=== PATIENT | male | born 1970 | race Caucasian/White ===

== ENCOUNTER 2020-01-30 10:34 | Emergency (ER) | payer OTHER ==
[~2020-01-30] VITALS: Ht 185.4 cm; Wt 133.8 kg
[2020-01-30 10:47] VITALS: BP_SYST 141
[2020-01-30] MEDS ORDERED: NACL 0.9% 1,000 ML IV ONE (10:57)
[2020-01-30] MEDS ORDERED: LORazepam 2 MG/ML VIAL IVP ONE (11:00)
[2020-01-30] MEDS ORDERED: ASPIRIN 81 MG TAB.CHEW PO ONE (11:00)
[2020-01-30 11:20] LABS: BASOPHILS # (AUTO) 0.1 K/uL (0.0-0.2); BASOPHILS % (AUTO) 0.8 % (0.0-2.0); EOSINOPHILS # (AUTO) 0.2 K/uL (0.0-0.4); EOSINOPHILS % (AUTO) 2.2 % (0.0-4.0); HEMATOCRIT 44.2 % (36-54); HEMOGLOBIN 14.8 g/dL (14.0-18.0); LYMPHOCYTES # (AUTO) 2.2 K/uL (1.0-5.5); LYMPHOCYTES % (AUTO) 28.8 % (20.5-51.5); MEAN CORPUSCULAR HEMOGLOBIN 28 pg (27-31); MEAN CORPUSCULAR HGB CONC 34 % (32-36); MEAN CORPUSCULAR VOLUME 85 fL (79.0-98.0); MONOCYTES # (AUTO) 0.5 K/uL (0.0-1.0); NEUTROPHILS # (AUTO) 4.8 K/uL (1.8-7.7); NEUTROPHILS % (AUTO) 62.2 % (40.0-70.0); PLATELET COUNT (AUTO) 209 K/uL (130-430); RED BLOOD CELL COUNT(AUTO) 5.22 MIL/uL (4.2-6.2); WHITE BLOOD COUNT (AUTO) 7.7 K/uL (4.8-10.8)
[2020-01-30 11:33] LABS: ANION GAP 11 (5-15); CALCIUM 8.4 mg/dL (8.4-11.0); CHLORIDE 102 mmol/L (98-107); CREATININE 0.95 mg/dL (0.55-1.30); GLUCOSE 150 mg/dL (70-99); POTASSIUM 3.9 mmol/L (3.5-5.1); SODIUM SERUM 140 mmol/L (136-145); UREA NITROGEN, BLOOD 15 mg/dL (8-21)
[2020-01-30 11:37] LABS: GFR AFRICAN AMERICAN 108 mL/min (>90)
[2020-01-30 11:41] LABS: ALANINE AMINOTRANSFERASE 37 U/L (12-78); ALBUMIN 3.4 g/dL (3.4-4.8); ASPARTATE AMINOTRANSFERASE 25 U/L (10-37); TOTAL BILIRUBIN 0.4 mg/dL (0.0-1.0)
[2020-01-30 12:45] VITALS: BP_SYST 120
== END 2020-01-30 12:45 | disposition home or self-care (01) ==
LOC: SED 10:34
DX: F41.9 Anxiety disorder, unspecified (principal); R00.2 Palpitations; I10 Essential (primary) hypertension; E78.00 Pure hypercholesterolemia, unspecified; R42 Dizziness and giddiness
CPT/HCPCS: 36415; 71045; 80053; 84484; 85025; 93005; 96361; 96374; 99285; J2060; J7030

== ENCOUNTER 2020-08-23 14:36 | Emergency (ER) | payer OTHER ==
[~2020-08-23] VITALS: Ht 185.4 cm; Wt 136.1 kg
[2020-08-23 14:40] VITALS: BP_SYST 131
== END 2020-08-23 18:06 | disposition home or self-care (01) ==
LOC: SED 14:36
DX: B34.9 Viral infection, unspecified (principal); R50.9 Fever, unspecified; M79.18 Myalgia, other site; R05 Cough; I10 Essential (primary) hypertension; E78.00 Pure hypercholesterolemia, unspecified; Z20.828 Contact with and (suspected) exposure to other viral communicable diseases
CPT/HCPCS: 71045; 99284; C9803; U0003

== ENCOUNTER 2020-08-24 10:02 | Emergency (ER) | payer OTHER, SELFPAY ==
[~2020-08-24] VITALS: Ht 185.4 cm; Wt 136.1 kg
[2020-08-24 10:02] VITALS: BP_SYST 119
--- NOTE | 2020-08-24 10:03 | NUR ---
BROUGHT INTO TRIAGE TENT AND TRIAGED, AWAITING ER BED
--- NOTE | 2020-08-24 10:17 | NUR ---
DR PULIDO OUT TO TENT FOR EVALUATION
--- NOTE | 2020-08-24 10:45 | NUR ---
TAKEN TO RADIOLOGY VIA WHEELCHAIR
[2020-08-24 11:49] LABS: BASOPHILS % (AUTO) 0.3 % (0.0-2.0); HEMOGLOBIN 13.8 g/dL (14.0-18.0); LYMPHOCYTES # (AUTO) 0.5 K/uL (1.0-5.5); MEAN CORPUSCULAR HEMOGLOBIN 28 pg (27-31); MEAN CORPUSCULAR HGB CONC 34 % (32-36); MEAN CORPUSCULAR VOLUME 83 fL (79.0-98.0); MONOCYTES # (AUTO) 0.3 K/uL (0.0-1.0); MONOCYTES % (AUTO) 4.1 % (1.7-9.3); NEUTROPHILS # (AUTO) 5.4 K/uL (1.8-7.7); NEUTROPHILS % (AUTO) 87.6 % (40.0-70.0); PLATELET COUNT (AUTO) 164 K/uL (130-430); RED BLOOD CELL COUNT(AUTO) 4.92 MIL/uL (4.2-6.2); RED CELL DISTRIBUTION WIDTH 14.1 % (9.0-15.0); WHITE BLOOD COUNT (AUTO) 6.2 K/uL (4.8-10.8)
[2020-08-24 12:06] LABS: CALCIUM 8.3 mg/dL (8.4-11.0); CREATININE 1.15 mg/dL (0.55-1.30); POTASSIUM 4.6 mmol/L (3.5-5.1)
[2020-08-24 12:10] LABS: PROTHROMBIN TIME 10.1 SECS (9.5-12.5)
--- NOTE | 2020-08-24 12:10 | NUR ---
SWABBED FOR COVID SCREEN
[2020-08-24 12:19] LABS: ALBUMIN 3.5 g/dL (3.4-4.8); TOTAL BILIRUBIN 0.5 mg/dL (0.0-1.0)
[2020-08-24 12:41] LABS: C-REACTIVE PROTEIN QUANT 12.4 mg/dL (0-0.5)
--- NOTE | 2020-08-24 13:01 | NUR ---
DR PULIDO OUT TO SPEAK WITH PT AND RE-EVALUATED.
[2020-08-24 13:26] VITALS: BP_SYST 119
--- NOTE | 2020-08-24 13:27 | NUR ---
Patient given written and verbal discharge instructions and verbalizes understanding. ER MD discussed with patient the results and treatment provided. Patient in stable condition. ID arm band removed. Rx of Zincate, Vit D, Ivermectin given. Patient educated on pain management and to follow up with PMD. Pain Scale 3/10 tolerable for pt . Opportunity for questions provided and answered. Medication side effect fact sheet provided.
[2020-08-29] MEDS ORDERED: DEC4 PO (18:37)
[2020-08-29] MEDS ORDERED: GLIP5TAB13 PO (18:37)
== END 2020-08-24 13:26 | disposition home or self-care (01) ==
LOC: SED 10:02
DX: U07.1 COVID-19 (principal); J12.82 Pneumonia due to coronavirus disease 2019; I10 Essential (primary) hypertension
CPT/HCPCS: 36415; 36600; 71045; 80053; 81002; 82550-TC; 82728; 82803-TC; 83605; 83615-TC; 83880; 84484; 85025; 85379; 85384-TC; 85610-TC; 85730-TC; 86140; 87040-TC; 93005; 99285

== ENCOUNTER 2020-08-25 11:01 | Emergency (ER) | payer OTHER, SELFPAY ==
[~2020-08-25] VITALS: Ht 185.4 cm; Wt 136.1 kg
[2020-08-25 11:09] VITALS: BP_SYST 138
--- NOTE | 2020-08-25 11:11 | NUR ---
Patient triaged and placed in waiting room. VSS and patient appears in no acute distress at this time. Accompanied by self , awaiting available bed, and MD notified of need for MSE.
--- NOTE | 2020-08-25 11:30 | NUR ---
Pt brought by self, A&Ox4, pt presents to ER with SOB, O2 92% pt states he is positive for covid , skin pink and warm,cap refill <3, VSS
--- NOTE | 2020-08-25 11:45 | NUR ---
Dr Huang evaluating patient in the tent
[2020-08-25 12:43] VITALS: BP_SYST 138
--- NOTE | 2020-08-25 12:44 | NUR ---
Patient given written and verbal discharge instructions and verbalizes understanding. ER MD discussed with patient the results and treatment provided. Patient in stable condition. ID arm band removed. No Rx given. Patient educated on pain management and to follow up with PMD. Pain Scale 0/10. Opportunity for questions provided and answered. Medication side effect fact sheet provided.
== END 2020-08-25 12:44 | disposition home or self-care (01) ==
LOC: SED 11:01
DX: U07.1 COVID-19 (principal); I10 Essential (primary) hypertension; E78.00 Pure hypercholesterolemia, unspecified
CPT/HCPCS: 99281